=== PATIENT | female | born 1955 | race Caucasian/White ===

== ENCOUNTER 2023-12-14 09:49 | Inpatient (IN) | payer MEDICARE ==
[~2023-12-14] VITALS: Ht 152.4 cm; Wt 115.6 kg
[2023-12-14 10:36] LABS: BASO % 0.3 % (0.0-1.0); EOS # 0.1 10^3/uL (0.0-0.5); EOS % 0.5 % (0.0-3.0); HEMATOCRIT 28.3 % (36.0-47.0); HEMOGLOBIN 9.3 g/dl (12.0-15.5); LYMPH # 1.2 10^3/uL (1.5-5.0); MEAN CORPUSCULAR HEMOGLOBIN 30.4 pg (27.0-33.0); MEAN CORPUSCULAR HGB CONC 32.9 g/dl (32.0-36.5); MEAN CORPUSCULAR VOLUME 92.5 fl (80.0-96.0); MONO # 0.6 10^3/uL (0.0-0.8); MONO % 5.8 % (2.0-8.0); NEUTROPHILS % 81.9 % (36.0-66.0); PLATELET COUNT, AUTOMATED 276 10^3/uL (150-450); RED BLOOD COUNT 3.06 10^6/uL (4.00-5.40)
[2023-12-14 10:51] LABS: INR 1.12; PARTIAL THROMBOPLASTIN TIME 28.5 SECONDS (24.8-34.2)
[2023-12-14 10:53] LABS: LIPASE 32 U/L (12-53)
[2023-12-14 10:54] LABS: AMYLASE 37 U/L (30-118)
[2023-12-14 10:55] LABS: ALBUMIN 3.2 G/DL (3.2-5.2); ALKALINE PHOSPHATASE 101 U/L (46-116); ALT/SGPT < 9 U/L (7.0-40); AST/SGOT 53 U/L (<34); BILIRUBIN,DIRECT 0.2 MG/DL (<0.4); BILIRUBIN,TOTAL 0.6 MG/DL (0.3-1.2); BLOOD UREA NITROGEN 46 MG/DL (9-23); CALCIUM LEVEL 9.4 MG/DL (8.3-10.6); CARBON DIOXIDE LEVEL 26 MMOL/L (20-31); CHLORIDE LEVEL 107 MMOL/L (98-107); GLOMERULAR FILTRATION RATE 23.6 (>45); GLUCOSE, FASTING 107 MG/DL (74-106); POTASSIUM SERUM 4.3 MMOL/L (3.5-5.1); SODIUM LEVEL 135 MMOL/L (136-145); TOTAL PROTEIN 6.8 G/DL (5.7-8.2)
[2023-12-14] MEDS: LIDOCAINE 2% 5ML JELLY UROJET TOP ONE (11:10)
[2023-12-14] MEDS: NS 500 ML IV ONE (11:24)
[2023-12-14] MEDS ORDERED: LOSA100T5 PO (12:15)
[2023-12-14] MEDS ORDERED: FLUO40CA PO (12:15)
[2023-12-14] MEDS ORDERED: BRIM5DRO4 OU (12:15)
[2023-12-14] MEDS ORDERED: FURO20TA2 PO (12:15)
[2023-12-14] MEDS ORDERED: GNP1000C11 PO (12:15)
[2023-12-14] MEDS ORDERED: ERGO500029 PO (12:15)
[2023-12-14] MEDS ORDERED: HOME MED LIST COMPLETE! XX SCH (12:15)
[2023-12-14] MEDS ORDERED: MOM 30ML SUSPENSION UDC PO PRN (13:05)
[2023-12-14] MEDS ORDERED: MAALOX 30 ML SUSP *UDC PO PRN (13:05)
[2023-12-14] MEDS ORDERED: MIDAZOLAM INJ 2MG/2ML VIAL As Ordered ONE (13:39)
[2023-12-14] MEDS ORDERED: LIDOCAINE 1% MDV 20ML VIAL As Ordered ONE (13:39)
[2023-12-14] MEDS ORDERED: fentaNYL 100 MCG/2 ML INJECTION As Ordered ONE (13:39)
[2023-12-14] MEDS ORDERED: ISOVUE-300 61% 100ML VIAL As Ordered ONE (13:39)
[2023-12-14 13:45] LABS: PROCALCITONIN 0.11 ng/ml
[2023-12-14] MEDS ORDERED: cefTRIAXone SOD 1GM VIAL As Ordered ONE (13:51)
[2023-12-14] MEDS: cefTRIAXone SOD 1 GM in D5W MINI-BAG PLUS 50 ML IV SCH (13:56)
[2023-12-14] MEDS ORDERED: ONDANSETRON 4MG 2ML VIAL IV PRN (14:30)
[2023-12-14 15:21] LABS: HEMATOCRIT 28.4 % (36.0-47.0); HEMOGLOBIN 9.3 g/dl (12.0-15.5)
[2023-12-14 15:47] LABS: C REACTIVE PROTEIN QUANTITATIV 7.7 MG/DL (<1.0)
[2023-12-14 15:48] LABS: PERCENT SATURATION 11.3 % (13.2-45.0)
[2023-12-14 15:50] LABS: FERRITIN 231.8 NG/ML (7.3-270.7); FOLATE 13.07 NG/ML (>5.4)
[2023-12-14] MEDS: NS 1,000 ML IV SCH ×2 (16:07→17:28)
[2023-12-14 17:30] VITALS: BP 136/62; TEMP 97.4; O2SAT 100
[2023-12-14 19:59] LABS: HEMATOCRIT 27.3 % (36.0-47.0)
[2023-12-14 20:10] VITALS: BP 123/58; TEMP 97.4; O2SAT 99
[2023-12-14] MEDS: DOCUSATE SODIUM 100MG CAPSULE PO SCH (20:10)
[2023-12-14] MEDS ORDERED: ENTER DRUG NAME HERE (PATIENT'S OWN MED) OU SCH (21:00)
[2023-12-14] MEDS: ACETAMINOPHEN TAB 650MG DOSE (2X325MG) PO PRN (21:16)
[2023-12-14] MEDS: BRIMONIDINE 0.15% OPHTH SOLN 5 ML OU SCH (21:22)
[2023-12-14] MEDS: TIMOLOL MALEATE 0.5% OPHTH SOLN 5 ML OU SCH (21:22)
[2023-12-14 23:21] VITALS: BP 137/63; TEMP 98.3; O2SAT 97
[2023-12-15 01:26] LABS: HEMATOCRIT 24.9 % (36.0-47.0); HEMOGLOBIN 8.1 g/dl (12.0-15.5)
[2023-12-15 04:47] VITALS: BP 135/63; TEMP 97.9; O2SAT 97
[2023-12-15 06:31] LABS: BASO % 0.2 % (0.0-1.0); EOS % 0.3 % (0.0-3.0); HEMATOCRIT 26.2 % (36.0-47.0); HEMOGLOBIN 8.5 g/dl (12.0-15.5); LYMPH # 1.5 10^3/uL (1.5-5.0); LYMPH % 15.5 % (24.0-44.0); MEAN CORPUSCULAR HEMOGLOBIN 30.6 pg (27.0-33.0); MEAN CORPUSCULAR HGB CONC 32.4 g/dl (32.0-36.5); MEAN CORPUSCULAR VOLUME 94.2 fl (80.0-96.0); MONO # 0.7 10^3/uL (0.0-0.8); MONO % 7.2 % (2.0-8.0); NEUTROPHILS # 7.4 10^3/uL (1.5-8.5); NEUTROPHILS % 76.4 % (36.0-66.0); PLATELET COUNT, AUTOMATED 231 10^3/uL (150-450); RED BLOOD COUNT 2.78 10^6/uL (4.00-5.40); WHITE BLOOD COUNT 9.7 10^3/uL (4.0-10.0)
[2023-12-15 07:05] LABS: ALBUMIN 2.9 G/DL (3.2-5.2); ALKALINE PHOSPHATASE 92 U/L (46-116); ALT/SGPT < 9 U/L (7.0-40); AST/SGOT 53 U/L (<34); BILIRUBIN,TOTAL 0.4 MG/DL (0.3-1.2); BLOOD UREA NITROGEN 44 MG/DL (9-23); CALCIUM LEVEL 9.1 MG/DL (8.3-10.6); CARBON DIOXIDE LEVEL 25 MMOL/L (20-31); CHLORIDE LEVEL 105 MMOL/L (98-107); CREATININE FOR GFR 1.91 MG/DL (0.55-1.30); GLOMERULAR FILTRATION RATE 27.8 (>45); GLUCOSE, FASTING 83 MG/DL (74-106); POTASSIUM SERUM 4.2 MMOL/L (3.5-5.1); SODIUM LEVEL 137 MMOL/L (136-145); TOTAL PROTEIN 6.2 G/DL (5.7-8.2)
[2023-12-15 08:00] VITALS: BP 140/65; TEMP 98; O2SAT 97
[2023-12-15] MEDS: FLUoxetine 20MG CAP PO SCH (08:02)
[2023-12-15] MEDS ORDERED: PREVNAR-20 VACCINE 0.5ML SYRINGE IM.IMMUN ONE (09:00)
[2023-12-15 10:26] LABS: COLLAGEN EPINEPHRINE 98 SECONDS (74-162)
[2023-12-15] MEDS ORDERED: ONDANSETRON 4MG 2ML VIAL As Ordered ONE (13:06)
[2023-12-15] MEDS ORDERED: LIDOCAINE 2% 100MG/5ML SDV (FOR ANES.) As Ordered ONE (13:06)
[2023-12-15] MEDS ORDERED: KETOROLAC 60MG 2ML VIAL As Ordered ONE (13:06)
[2023-12-15] MEDS ORDERED: propofoL 200 MG/20 ML VIAL As Ordered ONE (13:06)
[2023-12-15 15:27] VITALS: BP 136/62; TEMP 98.3; O2SAT 100
[2023-12-15 16:00] VITALS: BP 135/60; TEMP 98.3; O2SAT 99
[2023-12-15 20:03] VITALS: BP 140/70; TEMP 98; O2SAT 98
[2023-12-15] MEDS: ALPRAZolam 0.25 MG TAB PO SCH (20:34)
[2023-12-16] VITALS (7 sets, daily range): BP systolic 118–145; BP diastolic 58–76; TEMP 97.9–98.5; O2SAT 99–100
[2023-12-16 06:11] LABS: BASO % 0.1 % (0.0-1.0); HEMOGLOBIN 7.5 g/dl (12.0-15.5); LYMPH # 1.2 10^3/uL (1.5-5.0); LYMPH % 10.8 % (24.0-44.0); MEAN CORPUSCULAR HEMOGLOBIN 29.6 pg (27.0-33.0); MEAN CORPUSCULAR HGB CONC 31.3 g/dl (32.0-36.5); MEAN CORPUSCULAR VOLUME 94.9 fl (80.0-96.0); MONO # 0.7 10^3/uL (0.0-0.8); MONO % 6.2 % (2.0-8.0); NEUTROPHILS # 9.2 10^3/uL (1.5-8.5); NEUTROPHILS % 82.6 % (36.0-66.0); PLATELET COUNT, AUTOMATED 238 10^3/uL (150-450); RED BLOOD COUNT 2.53 10^6/uL (4.00-5.40); WHITE BLOOD COUNT 11.2 10^3/uL (4.0-10.0)
[2023-12-16 06:31] LABS: ALBUMIN 2.7 G/DL (3.2-5.2); ALKALINE PHOSPHATASE 87 U/L (46-116); ALT/SGPT < 9 U/L (7.0-40); AST/SGOT 48 U/L (<34); BILIRUBIN,TOTAL 0.3 MG/DL (0.3-1.2); BLOOD UREA NITROGEN 41 MG/DL (9-23); CALCIUM LEVEL 8.5 MG/DL (8.3-10.6); CARBON DIOXIDE LEVEL 23 MMOL/L (20-31); CHLORIDE LEVEL 108 MMOL/L (98-107); CREATININE FOR GFR 1.67 MG/DL (0.55-1.30); GLOMERULAR FILTRATION RATE 32.5 (>45); GLUCOSE, FASTING 81 MG/DL (74-106); MAGNESIUM LEVEL 1.8 MG/DL (1.8-2.4); POTASSIUM SERUM 4.5 MMOL/L (3.5-5.1); SODIUM LEVEL 137 MMOL/L (136-145)
[2023-12-16] MEDS ORDERED: FUROSEMIDE 20MG/2ML VIAL As Ordered ONE (09:48)
[2023-12-16] MEDS ORDERED: ISOVUE-370 76% 100ML VIAL As Ordered ONE (10:00)
[2023-12-16] MEDS ORDERED: NS 1,000 ML IV SCH (11:00)
[2023-12-16] MEDS ORDERED: NORV5TAB PO (13:19)
[2023-12-16] MEDS ORDERED: FERR325T3 PO (13:39)
[2023-12-16] MEDS: LIDOCAINE 5% (LIDODERM) PATCH TD SCH (14:39)
[2023-12-16] MEDS: PREVNAR-20 VACCINE 0.5ML SYRINGE IM.IMMUN ONE (16:13)
[2023-12-16 17:48] LABS: HEMATOCRIT 28.4 % (36.0-47.0); HEMOGLOBIN 9.1 g/dl (12.0-15.5)
== END 2023-12-16 18:13 | disposition home health service (06) | DRG 987 ==
LOC: EDBD 09:49 → M ED 09:49 → M ED INP 13:04 → M PCU 17:29
PROVIDERS: ADMIT Internal Medicine; ATTEND Internal Medicine
PROC: 0T9130Z Drainage of Left Kidney with Drainage Device, Percutaneous Approach (ICD-10-PCS; 2023-12-14)
PROC: 0UDB8ZX Extraction of Endometrium, Via Natural or Artificial Opening Endoscopic, Diagnostic (ICD-10-PCS; principal; 2023-12-15 12:00)
PROC: 30233N1 Transfusion of Nonautologous Red Blood Cells into Peripheral Vein, Percutaneous Approach (ICD-10-PCS; 2023-12-16)
PROC: 0T9030Z Drainage of Right Kidney with Drainage Device, Percutaneous Approach (ICD-10-PCS; 2023-12-16)
DX: C49.9 Malignant neoplasm of connective and soft tissue, unspecified (principal); N17.0 Acute kidney failure with tubular necrosis; N13.30 Unspecified hydronephrosis; D62 Acute posthemorrhagic anemia; E87.1 Hypo-osmolality and hyponatremia; Z53.09 Procedure and treatment not carried out because of other contraindication; I10 Essential (primary) hypertension; E78.5 Hyperlipidemia, unspecified; F41.0 Panic disorder [episodic paroxysmal anxiety]; H40.9 Unspecified glaucoma; E55.9 Vitamin D deficiency, unspecified; M54.50 Low back pain, unspecified; N93.9 Abnormal uterine and vaginal bleeding, unspecified; R59.0 Localized enlarged lymph nodes; N95.0 Postmenopausal bleeding; E61.1 Iron deficiency; F39 Unspecified mood [affective] disorder; Z87.891 Personal history of nicotine dependence; Z79.899 Other long term (current) drug therapy; Z88.0 Allergy status to penicillin

== ENCOUNTER 2024-01-12 13:24 | Emergency (ER) | payer MEDICARE ==
[~2024-01-12] VITALS: Ht 152.4 cm; Wt 115.5 kg
[2024-01-12] VITALS (7 sets, daily range): BP systolic 115–128; BP diastolic 52–60; TEMP 96.1–96.8; O2SAT 98–100
[~2024-01-12 13:24] MED LIST: BRIM5DRO4 OU; ERGO500029 PO; FERR325T3 PO; FLUO40CA PO; FURO20TA2 PO; GNP1000C11 PO; LOSA100T5 PO; NORV5TAB PO
[2024-01-12] MEDS ORDERED: FURO20TA2 PO (13:40)
[2024-01-12] MEDS ORDERED: OXYC-517 PO (13:40)
[2024-01-12 14:56] LABS: BASO % 0.3 % (0.0-1.0); EOS # 0.1 10^3/uL (0.0-0.5); HEMATOCRIT 21.4 % (36.0-47.0); LYMPH % 10.3 % (24.0-44.0); MEAN CORPUSCULAR HEMOGLOBIN 30.5 pg (27.0-33.0); MEAN CORPUSCULAR HGB CONC 31.8 g/dl (32.0-36.5); MONO # 0.7 10^3/uL (0.0-0.8); MONO % 7.4 % (2.0-8.0); NEUTROPHILS # 7.8 10^3/uL (1.5-8.5); NEUTROPHILS % 80.4 % (36.0-66.0); PLATELET COUNT, AUTOMATED 234 10^3/uL (150-450); RED BLOOD COUNT 2.23 10^6/uL (4.00-5.40); WHITE BLOOD COUNT 9.7 10^3/uL (4.0-10.0)
[2024-01-12 15:00] LABS: HEMOGLOBIN 6.8 g/dl (12.0-15.5)
[2024-01-12 15:59] LABS: ALBUMIN 2.6 G/DL (3.2-5.2); ALKALINE PHOSPHATASE 100 U/L (46-116); ALT/SGPT < 9 U/L (7.0-40); AST/SGOT 68 U/L (<34); BILIRUBIN,TOTAL 0.3 MG/DL (0.3-1.2); BLOOD UREA NITROGEN 53 MG/DL (9-23); CALCIUM LEVEL 9.5 MG/DL (8.3-10.6); CARBON DIOXIDE LEVEL 23 MMOL/L (20-31); CHLORIDE LEVEL 107 MMOL/L (98-107); CREATININE FOR GFR 2.29 MG/DL (0.55-1.30); GLOMERULAR FILTRATION RATE 22.6 (>45); GLUCOSE, FASTING 122 MG/DL (74-106); SODIUM LEVEL 135 MMOL/L (136-145); TOTAL PROTEIN 6.2 G/DL (5.7-8.2)
[2024-01-12 16:00] LABS: INR 1.17; PARTIAL THROMBOPLASTIN TIME 26.5 SECONDS (24.8-34.2); PROTHROMBIN TIME 14.5 SECONDS (12.5-14.5)
[2024-01-12] MEDS ORDERED: ACET650T15 PO (16:57)
[2024-01-12] MEDS ORDERED: HOME MED LIST COMPLETE! XX SCH (17:00)
[2024-01-12] MEDS: LIDOCAINE 2% 5ML JELLY UROJET TOP ONE (17:11)
[2024-01-12] MEDS: CIPROFLOXACIN 400 MG in IV 1 EA IV ONE (17:56)
== END 2024-01-12 21:00 | disposition short-term general hospital (02) ==
LOC: EDBD 13:24 → M ED 13:24
DX: N28.9 Disorder of kidney and ureter, unspecified (principal); D64.9 Anemia, unspecified; I10 Essential (primary) hypertension; Z88.1 Allergy status to other antibiotic agents; Z79.1 Long term (current) use of non-steroidal anti-inflammatories (NSAID); Z79.899 Other long term (current) drug therapy
CPT/HCPCS: 36430; 51701; 71250; 74176; 76856; 80047; 80053; 81000; 81001; 81015; 85025; 85610; 85730; 86850; 86900; 86901; 86920; 87088; 87186; 93005; 96374; 99291; J0744; P9016

== ENCOUNTER 2024-01-18 04:19 | Inpatient (IN) | payer MEDICARE ==
[2024-01-18] VITALS (14 sets, daily range): BP systolic 108–153; BP diastolic 48–78; TEMP 96.6–97.6; O2SAT 97–100
[~2024-01-18] VITALS: Ht 152.4 cm; Wt 118.6 kg
[~2024-01-18 04:19] MED LIST changes: +ACET650T15 PO; +OXYC-517 PO
[2024-01-18 04:49] LABS: BASO % 0.3 % (0.0-1.0); EOS # 0.2 10^3/uL (0.0-0.5); EOS % 2.2 % (0.0-3.0); HEMATOCRIT 24.1 % (36.0-47.0); HEMOGLOBIN 7.6 g/dl (12.0-15.5); LYMPH # 0.7 10^3/uL (1.5-5.0); LYMPH % 7.2 % (24.0-44.0); MEAN CORPUSCULAR HGB CONC 31.5 g/dl (32.0-36.5); MEAN CORPUSCULAR VOLUME 95.3 fl (80.0-96.0); MONO # 0.8 10^3/uL (0.0-0.8); NEUTROPHILS # 8.1 10^3/uL (1.5-8.5); NEUTROPHILS % 81.7 % (36.0-66.0); PLATELET COUNT, AUTOMATED 214 10^3/uL (150-450); RED BLOOD COUNT 2.53 10^6/uL (4.00-5.40); WHITE BLOOD COUNT 9.9 10^3/uL (4.0-10.0)
[2024-01-18 05:03] LABS: INR 1.05; PARTIAL THROMBOPLASTIN TIME 28.3 SECONDS (24.8-34.2)
[2024-01-18 05:11] LABS: ALBUMIN 2.4 G/DL (3.2-5.2); ALKALINE PHOSPHATASE 107 U/L (35-104); ALT/SGPT < 9 U/L (7.0-40); AST/SGOT 85 U/L (<34); BILIRUBIN,TOTAL 0.4 MG/DL (0.3-1.2); BLOOD UREA NITROGEN 50 MG/DL (9-23); CALCIUM LEVEL 9.3 MG/DL (8.3-10.6); CARBON DIOXIDE LEVEL 23 MMOL/L (20-31); CHLORIDE LEVEL 106 MMOL/L (98-107); CREATININE FOR GFR 2.36 MG/DL (0.55-1.30); GLOMERULAR FILTRATION RATE 21.8 (>45); GLUCOSE, FASTING 88 MG/DL (74-106); MAGNESIUM LEVEL 2.2 MG/DL (1.8-2.4); POTASSIUM SERUM 4.8 MMOL/L (3.5-5.1); SODIUM LEVEL 136 MMOL/L (136-145); TOTAL PROTEIN 5.9 G/DL (5.7-8.2)
[2024-01-18] MEDS: FUROSEMIDE 20MG/2ML VIAL IV ONE (06:22)
[2024-01-18] MEDS: medroxyPROGESTERone 5MG TABLET PO STA (06:22)
[2024-01-18] MEDS: TRANEXAMIC ACID INJection 1,000 MG in D5W 100 ML IV ONE (06:26)
[2024-01-18] MEDS ORDERED: PEPC10TA6 PO (08:35)
[2024-01-18] MEDS ORDERED: HOME MED LIST COMPLETE! XX SCH (08:40)
[2024-01-18] MEDS ORDERED: FUROSEMIDE 100MG/10ML VIAL IV ONE (15:40)
[2024-01-18] MEDS ORDERED: CALCIUM GLUCONATE 1,000 MG in DEXTROSE 5% (D5W) MINI-BAG PLU 100 ML IV ONE (15:40)
[2024-01-18] MEDS: FUROSEMIDE 100MG/10ML VIAL IV ONE (16:23)
[2024-01-18] MEDS: CALCIUM GLUCONATE 1,000 MG in DEXTROSE 5% (D5W) MINI-BAG PLU 100 ML IV ONE (16:28)
[2024-01-18] MEDS: FLUoxetine 20MG CAP PO SCH (17:32)
[2024-01-18] MEDS: PANTOPRAZOLE 40MG TAB (PROTONIX) PO SCH (17:32)
[2024-01-18 18:06] LABS: BASO % 0.3 % (0.0-1.0); EOS # 0.1 10^3/uL (0.0-0.5); EOS % 1.2 % (0.0-3.0); LYMPH # 0.8 10^3/uL (1.5-5.0); LYMPH % 6.7 % (24.0-44.0); MEAN CORPUSCULAR HEMOGLOBIN 29.5 pg (27.0-33.0); MEAN CORPUSCULAR VOLUME 89.2 fl (80.0-96.0); MONO # 0.9 10^3/uL (0.0-0.8); MONO % 7.6 % (2.0-8.0); NEUTROPHILS # 9.4 10^3/uL (1.5-8.5); NEUTROPHILS % 83.5 % (36.0-66.0); PLATELET COUNT, AUTOMATED 174 10^3/uL (150-450); WHITE BLOOD COUNT 11.2 10^3/uL (4.0-10.0)
[2024-01-18 18:27] LABS: HEMATOCRIT 34.8 % (36.0-47.0); HEMOGLOBIN 11.5 g/dl (12.0-15.5)
[2024-01-18] MEDS ORDERED: PANTOPRAZOLE 40MG TAB (PROTONIX) PO SCH (21:00)
[2024-01-18] MEDS: TIMOLOL MALEATE 0.5% OPHTH SOLN 5 ML OU SCH (21:58)
[2024-01-18] MEDS: BRIMONIDINE 0.15% OPHTH SOLN 5 ML OU SCH (21:58)
[2024-01-19] VITALS (9 sets, daily range): BP systolic 93–129; BP diastolic 57–76; TEMP 97–97.7; O2SAT 95–100
[2024-01-19] MEDS: oxyCODONE 5MG TAB PO PRN (00:04)
[2024-01-19 05:17] LABS: BASO % 0.3 % (0.0-1.0); EOS # 0.1 10^3/uL (0.0-0.5); HEMATOCRIT 28.1 % (36.0-47.0); LYMPH % 9.7 % (24.0-44.0); MEAN CORPUSCULAR HEMOGLOBIN 29.8 pg (27.0-33.0); MEAN CORPUSCULAR HGB CONC 33.5 g/dl (32.0-36.5); MEAN CORPUSCULAR VOLUME 89.2 fl (80.0-96.0); MONO # 0.9 10^3/uL (0.0-0.8); MONO % 8.8 % (2.0-8.0); NEUTROPHILS # 8.4 10^3/uL (1.5-8.5); NEUTROPHILS % 79.2 % (36.0-66.0); PLATELET COUNT, AUTOMATED 177 10^3/uL (150-450); RED BLOOD COUNT 3.15 10^6/uL (4.00-5.40); WHITE BLOOD COUNT 10.6 10^3/uL (4.0-10.0)
[2024-01-19 05:31] LABS: HEMOGLOBIN 9.4 g/dl (12.0-15.5)
[2024-01-19 05:36] LABS: INR 1.19; PARTIAL THROMBOPLASTIN TIME 30.9 SECONDS (24.8-34.2); PROTHROMBIN TIME 15.4 SECONDS (12.5-14.5)
[2024-01-19 05:44] LABS: ALBUMIN 2.2 G/DL (3.2-5.2); ALKALINE PHOSPHATASE 89 U/L (35-104); ALT/SGPT < 9 U/L (7.0-40); AST/SGOT 63 U/L (<34); BILIRUBIN,DIRECT 0.3 MG/DL (<0.4); BILIRUBIN,TOTAL 0.7 MG/DL (0.3-1.2); BLOOD UREA NITROGEN 51 MG/DL (9-23); CALCIUM LEVEL 8.8 MG/DL (8.3-10.6); CARBON DIOXIDE LEVEL 22 MMOL/L (20-31); CHLORIDE LEVEL 107 MMOL/L (98-107); CREATININE FOR GFR 2.41 MG/DL (0.55-1.30); GLOMERULAR FILTRATION RATE 21.3 (>45); GLUCOSE, FASTING 86 MG/DL (74-106); MAGNESIUM LEVEL 2.1 MG/DL (1.8-2.4); POTASSIUM SERUM 4.8 MMOL/L (3.5-5.1); SODIUM LEVEL 136 MMOL/L (136-145); TOTAL PROTEIN 5.3 G/DL (5.7-8.2)
[2024-01-19] MEDS ORDERED: FLUoxetine 20MG CAP PO SCH (09:00)
[2024-01-19] MEDS: FUROSEMIDE 100MG/10ML VIAL IV ONE (11:07)
[2024-01-20] VITALS (7 sets, daily range): BP systolic 98–119; BP diastolic 48–72; TEMP 97.2–97.7; O2SAT 94–96
[2024-01-20 06:27] LABS: BASO % 0.3 % (0.0-1.0); EOS # 0.1 10^3/uL (0.0-0.5); EOS % 0.9 % (0.0-3.0); HEMATOCRIT 28.1 % (36.0-47.0); HEMOGLOBIN 9.3 g/dl (12.0-15.5); LYMPH % 10.7 % (24.0-44.0); MEAN CORPUSCULAR HEMOGLOBIN 29.6 pg (27.0-33.0); MEAN CORPUSCULAR HGB CONC 33.1 g/dl (32.0-36.5); MEAN CORPUSCULAR VOLUME 89.5 fl (80.0-96.0); MONO # 0.9 10^3/uL (0.0-0.8); MONO % 9.6 % (2.0-8.0); NEUTROPHILS # 7.4 10^3/uL (1.5-8.5); NEUTROPHILS % 76.9 % (36.0-66.0); PLATELET COUNT, AUTOMATED 182 10^3/uL (150-450); RED BLOOD COUNT 3.14 10^6/uL (4.00-5.40); WHITE BLOOD COUNT 9.6 10^3/uL (4.0-10.0)
[2024-01-20 06:58] LABS: CALCIUM LEVEL 9.2 MG/DL (8.3-10.6); CREATININE FOR GFR 2.48 MG/DL (0.55-1.30); GLOMERULAR FILTRATION RATE 20.6 (>45); POTASSIUM SERUM 4.8 MMOL/L (3.5-5.1)
[2024-01-20] MEDS: ACETAMINOPHEN 325 MG TAB PO PRN (08:37)
[2024-01-20] MEDS: FUROSEMIDE 100MG/10ML VIAL IV SCH (12:03)
[2024-01-21 04:00] VITALS: BP 115/56; TEMP 97; O2SAT 96
[2024-01-21 08:00] VITALS: BP 114/57; TEMP 97.3; O2SAT 96
[2024-01-21 08:01] LABS: HEMATOCRIT 27.8 % (36.0-47.0); MEAN CORPUSCULAR HEMOGLOBIN 29.7 pg (27.0-33.0); MEAN CORPUSCULAR HGB CONC 32.4 g/dl (32.0-36.5); MEAN CORPUSCULAR VOLUME 91.7 fl (80.0-96.0); PLATELET COUNT, AUTOMATED 193 10^3/uL (150-450); RED BLOOD COUNT 3.03 10^6/uL (4.00-5.40); WHITE BLOOD COUNT 10.2 10^3/uL (4.0-10.0)
[2024-01-21 08:32] LABS: ALBUMIN 2.5 G/DL (3.2-5.2); BILIRUBIN,TOTAL 0.6 MG/DL (0.3-1.2); CALCIUM LEVEL 9.3 MG/DL (8.3-10.6); CREATININE FOR GFR 2.73 MG/DL (0.55-1.30); GLOMERULAR FILTRATION RATE 18.4 (>45); POTASSIUM SERUM 4.3 MMOL/L (3.5-5.1)
[2024-01-21 12:00] VITALS: BP 114/58; TEMP 97.7; O2SAT 96
[2024-01-21 16:00] VITALS: BP 114/57; TEMP 97.9; O2SAT 96
[2024-01-21 16:42] LABS: CALCIUM LEVEL 9.2 MG/DL (8.3-10.6); CREATININE FOR GFR 2.63 MG/DL (0.55-1.30); GLOMERULAR FILTRATION RATE 19.2 (>45); POTASSIUM SERUM 4.2 MMOL/L (3.5-5.1)
[2024-01-21] MEDS: FAMOTIDINE 20 MG TAB PO PRN (18:30)
[2024-01-21 20:00] VITALS: BP 114/53; TEMP 97.3; O2SAT 96
[2024-01-21] MEDS: PANTOPRAZOLE 40MG TAB (PROTONIX) PO SCH (20:51)
[2024-01-22] VITALS (8 sets, daily range): BP systolic 96–128; BP diastolic 44–75; TEMP 96.8–97.7; O2SAT 92–98
[2024-01-22 08:36] LABS: HEMOGLOBIN 9.1 g/dl (12.0-15.5); MEAN CORPUSCULAR HEMOGLOBIN 29.7 pg (27.0-33.0); MEAN CORPUSCULAR HGB CONC 32.5 g/dl (32.0-36.5); MEAN CORPUSCULAR VOLUME 91.5 fl (80.0-96.0); PLATELET COUNT, AUTOMATED 201 10^3/uL (150-450); RED BLOOD COUNT 3.06 10^6/uL (4.00-5.40); WHITE BLOOD COUNT 10.4 10^3/uL (4.0-10.0)
[2024-01-22 09:03] LABS: CALCIUM LEVEL 9.2 MG/DL (8.3-10.6); CREATININE FOR GFR 2.5 MG/DL (0.55-1.30); GLOMERULAR FILTRATION RATE 20.4 (>45); MAGNESIUM LEVEL 2.1 MG/DL (1.8-2.4); POTASSIUM SERUM 3.9 MMOL/L (3.5-5.1)
[2024-01-22 16:19] LABS: HEMATOCRIT 28.1 % (36.0-47.0)
[2024-01-22 21:26] LABS: HEMATOCRIT 26.8 % (36.0-47.0); HEMOGLOBIN 8.7 g/dl (12.0-15.5)
[2024-01-23] VITALS: BP 128/73; TEMP 97.9; O2SAT 96
[2024-01-23 04:00] VITALS: BP 130/73; TEMP 97.7; O2SAT 96
[2024-01-23 06:04] LABS: HEMATOCRIT 29.1 % (36.0-47.0); HEMOGLOBIN 9.2 g/dl (12.0-15.5); MEAN CORPUSCULAR HEMOGLOBIN 29.2 pg (27.0-33.0); MEAN CORPUSCULAR HGB CONC 31.6 g/dl (32.0-36.5); MEAN CORPUSCULAR VOLUME 92.4 fl (80.0-96.0); PLATELET COUNT, AUTOMATED 217 10^3/uL (150-450); RED BLOOD COUNT 3.15 10^6/uL (4.00-5.40); WHITE BLOOD COUNT 13.4 10^3/uL (4.0-10.0)
[2024-01-23 06:26] LABS: CALCIUM LEVEL 9.6 MG/DL (8.3-10.6); CREATININE FOR GFR 2.41 MG/DL (0.55-1.30); GLOMERULAR FILTRATION RATE 21.3 (>45); POTASSIUM SERUM 3.9 MMOL/L (3.5-5.1)
[2024-01-23 08:30] VITALS: BP 124/69; TEMP 97.5; O2SAT 97
[2024-01-23 17:15] VITALS: BP 107/56; TEMP 97.3; O2SAT 95
[2024-01-23 19:50] VITALS: BP 108/51; TEMP 97.5; TEMP 98.1; O2SAT 96
[2024-01-24] VITALS (9 sets, daily range): BP systolic 98–132; BP diastolic 43–68; TEMP 97.3–98.6; O2SAT 95–98
[2024-01-25 04:00] VITALS: BP 141/52; TEMP 97.7; O2SAT 96
[2024-01-25 07:57] LABS: HEMATOCRIT 25.1 % (36.0-47.0); HEMOGLOBIN 8.1 g/dl (12.0-15.5); MEAN CORPUSCULAR HEMOGLOBIN 28.9 pg (27.0-33.0); MEAN CORPUSCULAR HGB CONC 32.3 g/dl (32.0-36.5); MEAN CORPUSCULAR VOLUME 89.6 fl (80.0-96.0); PLATELET COUNT, AUTOMATED 202 10^3/uL (150-450)
[2024-01-25 08:20] LABS: CALCIUM LEVEL 9.3 MG/DL (8.3-10.6); CREATININE FOR GFR 2.08 MG/DL (0.55-1.30); GLOMERULAR FILTRATION RATE 25.2 (>45); POTASSIUM SERUM 3.2 MMOL/L (3.5-5.1)
[2024-01-25 08:30] VITALS: BP 113/48; TEMP 97.3; O2SAT 99
[2024-01-25] MEDS: POTASSIUM CHLORIDE 10% LIQ 20MEQ/15ML UDC PO SCH (09:27)
[2024-01-25 12:00] VITALS: BP 120/56; TEMP 97.6; O2SAT 98
[2024-01-25] MEDS: POTASSIUM CHLORIDE 10MEQ SR TABLET PO ONE (12:40)
[2024-01-25 16:00] VITALS: BP 116/56; TEMP 97.3; O2SAT 98
[2024-01-25] MEDS: IRON SUCROSE 100MG 5ML VIAL IV ONE (17:17)
[2024-01-25 21:10] VITALS: BP 131/63; TEMP 97.5; O2SAT 95
[2024-01-26] VITALS (7 sets, daily range): BP systolic 122–156; BP diastolic 60–78; TEMP 96.8–97.7; O2SAT 96–99
[2024-01-26 08:03] LABS: HEMATOCRIT 24.6 % (36.0-47.0); MEAN CORPUSCULAR HEMOGLOBIN 29.5 pg (27.0-33.0); MEAN CORPUSCULAR HGB CONC 32.5 g/dl (32.0-36.5); MEAN CORPUSCULAR VOLUME 90.8 fl (80.0-96.0); PLATELET COUNT, AUTOMATED 195 10^3/uL (150-450); RED BLOOD COUNT 2.71 10^6/uL (4.00-5.40); WHITE BLOOD COUNT 7.1 10^3/uL (4.0-10.0)
[2024-01-26 08:21] LABS: CALCIUM LEVEL 8.9 MG/DL (8.3-10.6); CREATININE FOR GFR 1.95 MG/DL (0.55-1.30); GLOMERULAR FILTRATION RATE 27.2 (>45); POTASSIUM SERUM 3.6 MMOL/L (3.5-5.1)
[2024-01-26] MEDS: POTASSIUM CHLORIDE 10% LIQ 20MEQ/15ML UDC PO ONE (10:31)
[2024-01-26] MEDS ORDERED: TORS20TA2 PO (14:29)
[2024-01-26] MEDS: TORSEMIDE 20 MG TAB PO SCH (17:05)
[2024-01-27 00:34] VITALS: BP 135/65; TEMP 97; O2SAT 97
[2024-01-27 02:36] VITALS: O2SAT 97
[2024-01-27 04:16] VITALS: BP 135/66; TEMP 97.2; O2SAT 98
[2024-01-27 08:00] VITALS: BP 147/72; TEMP 97.2; O2SAT 96
[2024-01-27 08:22] LABS: CALCIUM LEVEL 9.3 MG/DL (8.3-10.6); CREATININE FOR GFR 1.93 MG/DL (0.55-1.30); GLOMERULAR FILTRATION RATE 27.5 (>45); POTASSIUM SERUM 3.5 MMOL/L (3.5-5.1)
[2024-01-27 09:07] VITALS: O2SAT 97
== END 2024-01-27 11:31 | disposition home health service (06) | DRG 760 ==
LOC: M ED 04:19 → EDBD 04:19 → M MSPAV 14:00 → M ED 15:30
PROVIDERS: ADMIT Specialist; ATTEND Internal Medicine Nephrology
PROC: 30233N1 Transfusion of Nonautologous Red Blood Cells into Peripheral Vein, Percutaneous Approach (ICD-10-PCS; principal; 2024-01-18)
DX: N95.0 Postmenopausal bleeding (principal); N17.0 Acute kidney failure with tubular necrosis; D62 Acute posthemorrhagic anemia; C55 Malignant neoplasm of uterus, part unspecified; I12.9 Hypertensive chronic kidney disease with stage 1 through stage 4 chronic kidney disease, or unspecified chronic kidney disease; E55.9 Vitamin D deficiency, unspecified; F41.0 Panic disorder [episodic paroxysmal anxiety]; H40.9 Unspecified glaucoma; K21.9 Gastro-esophageal reflux disease without esophagitis; N18.9 Chronic kidney disease, unspecified; E78.5 Hyperlipidemia, unspecified; G47.33 Obstructive sleep apnea (adult) (pediatric); R60.0 Localized edema; G89.29 Other chronic pain; Z88.0 Allergy status to penicillin; Z79.899 Other long term (current) drug therapy; M54.9 Dorsalgia, unspecified

== ENCOUNTER → 2024-01-21 | Outpatient (RCR) | payer MEDICARE ==
[~2024-01-21] MED LIST changes: +PEPC10TA6 PO; +TORS20TA2 PO
== END ==
LOC: M ONCR 01-19 11:41
PROVIDERS: ATTEND General Practice
DX: Z51.0 Encounter for antineoplastic radiation therapy (principal); C54.1 Malignant neoplasm of endometrium

== ENCOUNTER 2024-02-02 19:47 | Inpatient (IN) | payer MEDICARE ==
[~2024-02-02] VITALS: Ht 152.4 cm; Wt 118.5 kg
[2024-02-02] MEDS: NS 500 ML IV ONE (20:59)
[2024-02-02 22:00] LABS: VENOUS BASE EXCESS 1.9 (-2.0-2.0); VENOUS HCO3 24.8 MMOL/L (23.0-27.0); VENOUS O2 SATURATION 97.9 % (60.0-80.0); VENOUS PARTIAL PRESSURE CO2 32.5 mmHg (38.0-50.0); VENOUS PARTIAL PRESSURE O2 104.4 mmHg (30.0-50.0); VENOUS PH 7.501 UNITS (7.330-7.430); VENOUS STANDARD HCO3 26.1 MMOL/L; VENOUS TOTAL CO2 25.8 MMOL/L (24.0-28.0)
[2024-02-02 22:07] LABS: HEMATOCRIT 25.3 % (36.0-47.0); HEMOGLOBIN 8.1 g/dl (12.0-15.5); LYMPH # 0.1 10^3/uL (1.5-5.0); LYMPH % 26.3 % (24.0-44.0); MEAN CORPUSCULAR HEMOGLOBIN 29.3 pg (27.0-33.0); MEAN CORPUSCULAR VOLUME 91.7 fl (80.0-96.0); MONO % 5.3 % (2.0-8.0); NEUTROPHILS % 47.3 % (36.0-66.0); RED BLOOD COUNT 2.76 10^6/uL (4.00-5.40)
[2024-02-02 22:10] LABS: NEUTROPHILS # 0.1 10^3/uL (1.5-8.5); WHITE BLOOD COUNT 0.2 10^3/uL (4.0-10.0)
[2024-02-02] MEDS: NS 1,000 ML IV ONE (22:10)
[2024-02-02 22:13] LABS: PLATELET COUNT, AUTOMATED 62 10^3/uL (150-450)
[2024-02-02 22:30] LABS: CK-MB VALUE MASS < 1.0 NG/ML (<3.6)
[2024-02-02 22:32] LABS: ALBUMIN 2.2 G/DL (3.2-5.2); ALKALINE PHOSPHATASE 126 U/L (35-104); ALT/SGPT 19 U/L (7.0-40); AST/SGOT 46 U/L (<34); BILIRUBIN,DIRECT 0.4 MG/DL (<0.4); BILIRUBIN,TOTAL 0.8 MG/DL (0.3-1.2); BLOOD UREA NITROGEN 58 MG/DL (9-23); CALCIUM LEVEL 9.1 MG/DL (8.3-10.6); CARBON DIOXIDE LEVEL 24 MMOL/L (20-31); CHLORIDE LEVEL 111 MMOL/L (98-107); GLOMERULAR FILTRATION RATE 31.8 (>45); GLUCOSE, FASTING 102 MG/DL (74-106); POTASSIUM SERUM 3.5 MMOL/L (3.5-5.1); SODIUM LEVEL 148 MMOL/L (136-145)
[2024-02-02] MEDS: CEFEPIME HCL 2 GM in DEXTROSE 5% (D5W) ADV/MINI-BAG 50 ML IV ONE (22:33)
[2024-02-02 22:34] LABS: THYROID STIMULATING HORMONE 0.254 uIU/ML (0.55-4.78)
[2024-02-02] MEDS: FILGRASTIM 300MCG 0.5ML SYRINGE **SC ADMINISTRATION ONLY SC ONE (22:41)
[2024-02-02 22:50] LABS: CPK CREATINE PHOSPHOKINASE 45 U/L (34-145); MB/CK RELATIVE INDEX 2.22 (< OR =4)
[2024-02-02] MEDS ORDERED: ACETAMINOPHEN 325 MG TAB PO PRN (23:20)
[2024-02-02] MEDS: LR 1,000 ML IV SCH (23:43)
[2024-02-03] VITALS (74 sets, daily range): BP systolic 68–146; BP diastolic 30–64; TEMP 97–101.2; O2SAT 94–100
[2024-02-03] MEDS ORDERED: PROC10TA5 PO (00:38)
[2024-02-03] MEDS ORDERED: ONDA-84 PO (00:38)
[2024-02-03] MEDS ORDERED: TORS20TA2 PO (00:38)
[2024-02-03] MEDS ORDERED: HOME MED LIST COMPLETE! XX SCH (00:45)
[2024-02-03] MEDS: NS 1,000 ML IV ONE (05:08)
[2024-02-03] MEDS: NOREPINEPHRINE 4MG IN D5 250ML 4 MG in IV 1 EA IV SCH (05:33)
[2024-02-03] MEDS: ONDANSETRON 4MG TAB PO SCH (06:00)
[2024-02-03] MEDS: PROCHLORPERAZINE 5MG TAB PO SCH (06:00)
[2024-02-03 06:50] LABS: HEMATOCRIT 23.5 % (36.0-47.0); HEMOGLOBIN 7.3 g/dl (12.0-15.5); MEAN CORPUSCULAR HEMOGLOBIN 28.4 pg (27.0-33.0); MEAN CORPUSCULAR HGB CONC 31.1 g/dl (32.0-36.5); MEAN CORPUSCULAR VOLUME 91.4 fl (80.0-96.0); RED BLOOD COUNT 2.57 10^6/uL (4.00-5.40)
[2024-02-03 06:52] LABS: PLATELET COUNT, AUTOMATED 42 10^3/uL (150-450); WHITE BLOOD COUNT 0.1 10^3/uL (4.0-10.0)
[2024-02-03 07:18] LABS: FREE T4 1.73 NG/DL (0.89-1.76)
[2024-02-03 07:27] LABS: ALBUMIN 1.8 G/DL (3.2-5.2); BILIRUBIN,TOTAL 1.3 MG/DL (0.3-1.2); CALCIUM LEVEL 8.3 MG/DL (8.3-10.6); CREATININE FOR GFR 1.97 MG/DL (0.55-1.30); GLOMERULAR FILTRATION RATE 26.8 (>45); MAGNESIUM LEVEL 1.9 MG/DL (1.8-2.4); POTASSIUM SERUM 3.3 MMOL/L (3.5-5.1)
[2024-02-03] MEDS: PANTOPRAZOLE 40MG VIAL IV SCH (09:00)
[2024-02-03] MEDS: cefTRIAXone SOD 2 GM in DEXTROSE 5% (D5W) ADV/MINI-BAG 50 ML IV SCH (09:43)
[2024-02-03] MEDS: FAMOTIDINE 20 MG TAB PO SCH (09:43)
[2024-02-03] MEDS: KCL 20MEQ IN 100ML SWI (KRUN) 20 MEQ in IV 1 EA IV SCH (09:43)
[2024-02-03] MEDS: FLUoxetine 20MG CAP PO SCH (09:44)
[2024-02-03] MEDS ORDERED: PILL CUTTER 1 EACH XX ONE (09:47)
[2024-02-03] MEDS: D5W 1,000 ML IV SCH (09:57)
[2024-02-03] MEDS ORDERED: CEFEPIME HCL 2 GM in D5W 50 ML IV SCH (11:00)
[2024-02-03] MEDS: metroNIDAZOLE 500 MG in IV 1 EA IV SCH (11:20)
[2024-02-03] MEDS: MAG SULF 1GM/100ML (MAG RUN) 1 GM in IV 1 EA IV ONE (12:41)
[2024-02-03] MEDS ORDERED: HEPARIN SOD (PORCINE) 5000UNITS/ML 1ML VIAL/SYRINGE SQ SCH (12:50)
[2024-02-03] MEDS: ONDANSETRON 4MG 2ML VIAL IV PRN (13:38)
[2024-02-03] MEDS: ACETAMINOPHEN *IV* 1,000 MG in IV 1 EA IV ONE (13:39)
[2024-02-03] MEDS: oxyCODONE 5MG TAB PO PRN (14:25)
[2024-02-03] MEDS: FILGRASTIM 480 MCG/0.8 ML SYRINGE **SC ADMINISTRATION ONLY SC ONE (22:38)
[2024-02-04] VITALS (77 sets, daily range): BP systolic 64–207; BP diastolic 27–77; TEMP 97–98.8; O2SAT 96–100
[2024-02-04 04:42] LABS: HEMATOCRIT 26.1 % (36.0-47.0); HEMOGLOBIN 8.5 g/dl (12.0-15.5); LYMPH # 0.1 10^3/uL (1.5-5.0); LYMPH % 41.7 % (24.0-44.0); MEAN CORPUSCULAR HEMOGLOBIN 29.4 pg (27.0-33.0); MEAN CORPUSCULAR HGB CONC 32.6 g/dl (32.0-36.5); MEAN CORPUSCULAR VOLUME 90.3 fl (80.0-96.0); MONO % 16.7 % (2.0-8.0); NEUTROPHILS % 33.3 % (36.0-66.0); RED BLOOD COUNT 2.89 10^6/uL (4.00-5.40)
[2024-02-04 04:51] LABS: PLATELET COUNT, AUTOMATED 32 10^3/uL (150-450); WHITE BLOOD COUNT 0.1 10^3/uL (4.0-10.0)
[2024-02-04 05:06] LABS: ALBUMIN 1.6 G/DL (3.2-5.2); BILIRUBIN,TOTAL 2.4 MG/DL (0.3-1.2); CALCIUM LEVEL 8.2 MG/DL (8.3-10.6); CREATININE FOR GFR 2.18 MG/DL (0.55-1.30); GLOMERULAR FILTRATION RATE 23.9 (>45); MAGNESIUM LEVEL 2.1 MG/DL (1.8-2.4); POTASSIUM SERUM 3.9 MMOL/L (3.5-5.1); TOTAL PROTEIN 5.1 G/DL (5.7-8.2)
[2024-02-04] MEDS: LACTATED RINGER'S 1000 ML IV STA (10:59)
[2024-02-04] MEDS ORDERED: VANCOMYCIN ORAL SOL 250MG/5ML ORAL SYRINGE PO SCH (12:00)
[2024-02-04] MEDS ORDERED: VANCOMYCIN 125MG CAPSULE PO SCH (12:00)
[2024-02-04] MEDS ORDERED: VANCOMYCIN ORAL SOL 250MG/5ML ORAL SYRINGE NG SCH (14:00)
[2024-02-04] MEDS: VANCOMYCIN ORAL SOL 250MG/5ML ORAL SYRINGE NG SCH (15:39)
[2024-02-04] MEDS: NYSTATIN 500,000U/5ML SUSP UDC SS SCH (20:49)
[2024-02-04] MEDS: CEFEPIME HCL 1 GM in DEXTROSE 5% (D5W) ADV/MINI-BAG 50 ML IV SCH (20:49)
[2024-02-04] MEDS: LR 500 ML IV ONE (20:57)
[2024-02-05] VITALS (79 sets, daily range): BP systolic 88–137; BP diastolic 36–78; TEMP 97.3–98.8; O2SAT 95–98
[2024-02-05] MEDS: LR 1,000 ML IV STA ×2 (01:14→09:35)
[2024-02-05 05:12] LABS: EOS % 5.9 % (0.0-3.0); HEMATOCRIT 28.4 % (36.0-47.0); HEMOGLOBIN 9.5 g/dl (12.0-15.5); LYMPH # 0.1 10^3/uL (1.5-5.0); LYMPH % 29.4 % (24.0-44.0); MEAN CORPUSCULAR HEMOGLOBIN 29.7 pg (27.0-33.0); MEAN CORPUSCULAR HGB CONC 33.5 g/dl (32.0-36.5); MEAN CORPUSCULAR VOLUME 88.8 fl (80.0-96.0); MONO % 17.6 % (2.0-8.0); NEUTROPHILS % 47.1 % (36.0-66.0)
[2024-02-05 05:15] LABS: NEUTROPHILS # 0.1 10^3/uL (1.5-8.5); PLATELET COUNT, AUTOMATED 17 10^3/uL (150-450); WHITE BLOOD COUNT 0.2 10^3/uL (4.0-10.0)
[2024-02-05 05:36] LABS: ALBUMIN 1.8 G/DL (3.2-5.2); BILIRUBIN,TOTAL 1.6 MG/DL (0.3-1.2); CREATININE FOR GFR 2.26 MG/DL (0.55-1.30); GLOMERULAR FILTRATION RATE 22.9 (>45); MAGNESIUM LEVEL 2.1 MG/DL (1.8-2.4); PHOSPHORUS LEVEL 2.8 MG/DL (2.4-5.1); POTASSIUM SERUM 3.5 MMOL/L (3.5-5.1); TOTAL PROTEIN 5.8 G/DL (5.7-8.2)
[2024-02-05] MEDS: LR 1,000 ML IV SCH (10:56)
[2024-02-05] MEDS: FILGRASTIM 480 MCG/0.8 ML SYRINGE **SC ADMINISTRATION ONLY SC SCH (12:16)
[2024-02-05] MEDS: DARBEPOETIN 100MCG/0.5ML *NON-DIALYSIS* SYRINGE SC ONE (12:16)
[2024-02-05] MEDS: MIDODRINE 5 MG TAB PO SCH (16:25)
[2024-02-05] MEDS: NYSTATIN 100,000 UNITS/GM TOPICAL PWD 15GM TOP PRN (16:25)
[2024-02-06] VITALS (48 sets, daily range): BP systolic 74–147; BP diastolic 26–68; TEMP 97.3–98.8; O2SAT 92–100
[2024-02-06 04:35] LABS: HEMOGLOBIN 8.9 g/dl (12.0-15.5); LYMPH # 0.1 10^3/uL (1.5-5.0); LYMPH % 20.5 % (24.0-44.0); MEAN CORPUSCULAR VOLUME 87.9 fl (80.0-96.0); MONO % 4.5 % (2.0-8.0); RED BLOOD COUNT 3.07 10^6/uL (4.00-5.40)
[2024-02-06 04:49] LABS: NEUTROPHILS # 0.3 10^3/uL (1.5-8.5); PLATELET COUNT, AUTOMATED 7 10^3/uL (150-450); WHITE BLOOD COUNT 0.4 10^3/uL (4.0-10.0)
[2024-02-06 05:10] LABS: ALBUMIN 1.3 G/DL (3.2-5.2); BILIRUBIN,TOTAL 1.5 MG/DL (0.3-1.2); CALCIUM LEVEL 8.2 MG/DL (8.3-10.6); CREATININE FOR GFR 1.91 MG/DL (0.55-1.30); GLOMERULAR FILTRATION RATE 27.8 (>45); POTASSIUM SERUM 3.5 MMOL/L (3.5-5.1); TOTAL PROTEIN 4.3 G/DL (5.7-8.2)
[2024-02-06] MEDS: LACTATED RINGER'S 1000 ML IV ONE (09:26)
[2024-02-06] MEDS: D5W 1,000 ML IV SCH (11:44)
[2024-02-06] MEDS ORDERED: MORPHINE 2 MG/ML 1ML VIAL IV PRN (13:55)
[2024-02-06] MEDS ORDERED: ACETAMINOPHEN 325 MG TAB PO PRN (13:55)
[2024-02-06] MEDS ORDERED: ONDANSETRON 4MG 2ML VIAL IV PRN (13:55)
[2024-02-06] MEDS ORDERED: ONDANSETRON 4MG ORAL DISINTEGRATING TAB PO PRN (13:55)
[2024-02-06] MEDS: LORazepam 2 MG/ML 1ML VIAL IV PRN (14:07)
[2024-02-06] MEDS ORDERED: LOPERAMIDE 2 MG CAPLET PO PRN (14:35)
[2024-02-06] MEDS: MORPHINE 10MG/0.5ML ORAL CONCENTRATE SOLUTION U/D SL PRN ×2 (15:37→17:05)
[2024-02-07] MEDS: LORazepam 1 MG TAB PO PRN ×2 (09:30→11:36)
[2024-02-07] MEDS: fentaNYL 25 MCG/HR PATCH TOP ONE (10:31)
[2024-02-07] MEDS: SCOPOLAMINE 1MG TRANSDERMAL PATCH TOP PRN (10:32)
[2024-02-07] MEDS: ATROPINE SULFATE 1% OPHTH SOLN 2ML BTL SL PRN ×2 (11:49→18:17)
[2024-02-07] MEDS: MORPHINE 10MG/0.5ML ORAL CONCENTRATE SOLUTION U/D SL PRN ×2 (16:32→17:14)
[2024-02-10] MEDS ORDERED: FENTANYL REMOVAL DOCUMENTATION MISC XX SCH (10:15)
== END 2024-02-08 04:29 | disposition expired | DRG 871 ==
LOC: EDBD 19:47 → M ED 19:47 → M ED INP 23:17 → M PCU 02-03 01:00 → M ICU 02-03 05:10 → M MSPAV 02-06 15:44
PROVIDERS: ADMIT Internal Medicine; ATTEND Student in an Organized Health Care Education/Training Program
PROC: 30233N1 Transfusion of Nonautologous Red Blood Cells into Peripheral Vein, Percutaneous Approach (ICD-10-PCS; 2024-02-02)
PROC: 02HV33Z Insertion of Infusion Device into Superior Vena Cava, Percutaneous Approach (ICD-10-PCS; principal; 2024-02-03)
PROC: 30233R1 Transfusion of Nonautologous Platelets into Peripheral Vein, Percutaneous Approach (ICD-10-PCS; 2024-02-06)
DX: A41.9 Sepsis, unspecified organism (principal); D61.810 Antineoplastic chemotherapy induced pancytopenia; R65.21 Severe sepsis with septic shock; D65 Disseminated intravascular coagulation [defibrination syndrome]; A04.72 Enterocolitis due to Clostridium difficile, not specified as recurrent; N17.9 Acute kidney failure, unspecified; B37.0 Candidal stomatitis; K52.1 Toxic gastroenteritis and colitis; E87.3 Alkalosis; E87.0 Hyperosmolality and hypernatremia; C78.00 Secondary malignant neoplasm of unspecified lung; C55 Malignant neoplasm of uterus, part unspecified; Z51.5 Encounter for palliative care; Z66 Do not resuscitate; I12.9 Hypertensive chronic kidney disease with stage 1 through stage 4 chronic kidney disease, or unspecified chronic kidney disease; N18.30 Chronic kidney disease, stage 3 unspecified; E78.5 Hyperlipidemia, unspecified; F41.0 Panic disorder [episodic paroxysmal anxiety]; D50.9 Iron deficiency anemia, unspecified; R13.10 Dysphagia, unspecified; H40.9 Unspecified glaucoma; E55.9 Vitamin D deficiency, unspecified; K21.9 Gastro-esophageal reflux disease without esophagitis; T45.1X5A Adverse effect of antineoplastic and immunosuppressive drugs, initial encounter; R57.1 Hypovolemic shock; R60.0 Localized edema; Z79.69 Long term (current) use of other immunomodulators and immunosuppressants; Z79.899 Other long term (current) drug therapy; Z87.891 Personal history of nicotine dependence; Z88.0 Allergy status to penicillin; Z96.0 Presence of urogenital implants